=== PATIENT | female | born 1985 | race Caucasian/White ===

== ENCOUNTER 2020-08-21 15:14 | Outpatient (CLI) | payer MEDICAID, OTHER ==
[2020-08-21 19:52] LABS: CANDIDA GROUP DNA NEGATIVE (NEGATIVE); CANDIDA KRUSEI DNA NEGATIVE (NEGATIVE); TRICHOMONAS VAGINALIS DNA POSITIVE (NEGATIVE)
[2020-08-21 20:51] LABS: TRICHOMONAS VAGINALIS DNA POSITIVE (NEGATIVE)
== END 2020-08-21 23:59 | disposition home or self-care (01) ==
LOC: LAB.R 15:14
PROVIDERS: ATTEND Advanced Practice Midwife
DX: N89.8 Other specified noninflammatory disorders of vagina (principal); Z11.3 Encounter for screening for infections with a predominantly sexual mode of transmission
CPT/HCPCS: 87491; 87591; 87661; 87801

== ENCOUNTER 2024-01-30 09:12 | Outpatient (CLI) | payer OTHER ==
--- NOTE | 2024-01-31 10:21 | Mammography Report ---
BILATERAL DIGITAL SCREENING MAMMOGRAM 3D/2D: 01/30/2024 CLINICAL: Baseline exam. Routine screening. Family history of breast cancer. No prior exams were available for comparison. Both breasts are extremely dense, which lowers the sensitivity of mammography (category d />75% gland ular tissue). There are multiple oval focal asymmetries in the right breast superior lateral quadrant middle depth. No other significant masses, calcifications, or other findings are seen in either breast. IMPRESSION: INCOMPLETE: NEEDS ADDITIONAL IMAGING EVALUATION The multiple oval focal asymmetries in the right breast resemble clustered cysts or fibroglandular ti ssue and are indeterminate. Additional views with possible ultrasound are recommended. Based on Tyrer-Cuzick model (a risk assessment model), the patient's lifetime risk is 35.2% and her 1 0 year risk is 5.6%. If a patient has an elevated risk, a more comprehensive evaluation should be con sidered and/or a referral to a genetic counselor. The [place] [employer], [place] [employer], and NCCN Guidelines advise the consideration of Breast MRI as an adjunct to screening mammog angel in patients whose "Lifetime risk to develop breast cancer" is 20% or higher. This exam was interpreted at Station ID: [id number]. NOTE: For mammograms, a report in lay terms will be sent to the patient. Approximately 15% of breast malignancies will not be visualized mammographically. In the management of a palpable breast mass, a negative mammogram must not discourage biopsy of a clinically suspicious lesion. Electronically Signed By: Syed Zuniga M.D. ar/penrad:01/30/2024 16:51:01 ACR BI-RADS Category 0: Incomplete 3340F PARENCHYMAL PATTERN: (VD) - The breast(s) demonstrate(s) extremely dense parenchyma, limiting the sen sitivity of mammography. BI-RADS CATEGORY: (0) - 0 Mammo and [place] [id number] Immediate follow-up LATERALITY: (R)
== END 2024-01-30 09:13 | disposition home or self-care (01) ==
LOC: DI.N 09:12
PROVIDERS: ATTEND Student in an Organized Health Care Education/Training Program
DX: Z12.31 Encounter for screening mammogram for malignant neoplasm of breast (principal); R92.8 Other abnormal and inconclusive findings on diagnostic imaging of breast; R92.30 Dense breasts, unspecified; Z80.3 Family history of malignant neoplasm of breast

== ENCOUNTER 2024-03-05 09:40 | Outpatient (CLI) | payer OTHER ==
--- NOTE | 2024-03-06 08:45 | Mammography Report ---
UNILATERAL RIGHT DIGITAL DIAGNOSTIC MAMMOGRAM 3D/2D: 03/05/2024 CLINICAL: Patient returns today to evaluate a focal asymmetry in the right breast. Comparison is made to exam dated: 01/30/2024 mammogram - [facility]. The right breast is extremely dense, which lowers the sensitivity of mammography (category d />75% gl andular tissue). There is a 4 cm round low density focal asymmetry with an obscured margin in the right breast at 10 o 'clock posterior depth. This is seen in additional views. There also is a 3 cm round low density focal asymmetry with an obscured margin in the right breast at 12 o'clock anterior depth. This is seen in additional views. No other significant masses or calcifications are seen in the breast. IMPRESSION: INCOMPLETE: NEEDS ADDITIONAL IMAGING EVALUATION The 4 cm round low density focal asymmetry in the right breast at 10 o'clock posterior depth is indet erminate. The 3 cm round low density focal asymmetry in the right breast at 12 o'clock anterior depth is indete rminate. An ultrasound is recommended of both of these areas. This was performed immediately following this e xam. Based on Tyrer-Cuzick model (a risk assessment model), the patient's lifetime risk is 35.2% and her 1 0 year risk is 5.6%. If a patient has an elevated risk, a more comprehensive evaluation should be con sidered and/or a referral to a genetic counselor. The [place] [employer], [employer] [employer], and NCCN Guidelines advise the consideration of Breast MRI as an adjunct to screening mammog angel in patients whose "Lifetime risk to develop breast cancer" is 20% or higher. This exam was interpreted at Station ID: [id number]. NOTE: For mammograms, a report in lay terms will be sent to the patient. Approximately 15% of breast malignancies will not be visualized mammographically. In the management of a palpable breast mass, a negative mammogram must not discourage biopsy of a clinically suspicious lesion. Electronically Signed By: Ella us/:03/05/2024 10:38:24 ACR BI-RADS Category 0: Incomplete 3340F PARENCHYMAL PATTERN: (VD) - The breast(s) demonstrate(s) extremely dense parenchyma, limiting the sen sitivity of mammography. BI-RADS CATEGORY: (0) - 0 Ultrasound [id number] Immediate follow-up LATERALITY: (B)
--- NOTE | 2024-03-06 08:45 | Ultrasound Report ---
LIMITED ULTRASOUND OF RIGHT BREAST: 03/05/2024 CLINICAL: Patient returns today to evaluate a focal asymmetry in the right breast. Comparison is made to exams dated: 03/05/2024 mammogram and 01/30/2024 mammogram - [facility]. Color flow ultrasound of the right breast 10 o'clock and 12 o'clock regions was performed. Luke scal e images of the real-time examination were reviewed. No significant abnormalities were seen sonographically in the right breast. There is dense glandular tissue in the upper outer quadrant corresponding to the mammogram. IMPRESSION: NEGATIVE No sonographic finding to correspond to mammographic asymmetries which are consistent with fibrogland ular tissue. There is no sonographic evidence of malignancy. Return to annual mammogram screening schedule is recommended. Findings and recommendations were conveyed to the patient at time of exam. This exam was interpreted at Station ID: [id number]. Electronically Signed By: Ella us/:03/05/2024 11:09:55 letter sent: No_Letter Ultrasound BI-RADS: 1 Negative BI-RADS CATEGORY: (1) - 1 Mammogram [id number] return to screening LATERALITY: (B)
== END 2024-03-05 09:41 | disposition home or self-care (01) ==
LOC: DI 09:40
PROVIDERS: ATTEND Student in an Organized Health Care Education/Training Program
DX: R92.8 Other abnormal and inconclusive findings on diagnostic imaging of breast (principal)